=== PATIENT | female | born 1965 | race Caucasian/White ===

== ENCOUNTER 2017-01-14 19:22 | Emergency (ER) | payer OTHER ==
[2017-01-14 19:29] VITALS: BP 137/82
== END 2017-01-14 22:56 | disposition home or self-care (01) ==
LOC: ED 19:22
DX: S43.101A Unspecified dislocation of right acromioclavicular joint, initial encounter (principal); S40.011A Contusion of right shoulder, initial encounter; W18.30XA Fall on same level, unspecified, initial encounter; Y93.89 Activity, other specified; Y99.8 Other external cause status; Y92.89 Other specified places as the place of occurrence of the external cause
CPT/HCPCS: J1885